=== PATIENT | female | born 1980 | race Caucasian/White ===

== ENCOUNTER → 2020-08-16 12:32 | Outpatient (CLI) | payer OTHER, SELFPAY ==
--- NOTE | 2020-08-16 13:00 | RAD_ITS ---
STUDY: X-RAY - LUMBAR SPINE REASON FOR EXAM: Female, 39 years old. LUMBAR RADICULOPATHY -- upright images TECHNIQUE: 4 view(s) of the lumbar spine were obtained. COMPARISON: None FINDINGS: Normal lumbar lordosis. There is no substantial scoliosis. There is a normal alignment of the vertebrae. No subluxation on the flexion or extension views to suggest instability. Normal vertebral bodies and endplates. Normal disc space heights. The soft tissue structures are unremarkable. RAD/L/S Spine Bending Flex/Ext IMPRESSION: Normal x-ray examination of the lumbar spine. No instability. Electronically Signed: Amadeo Alvarez MD at 17:21 EDT Tel , Service support ,
--- NOTE | 2020-08-16 13:21 | RAD_ITS ---
STUDY: X-RAY - LUMBAR SPINE REASON FOR EXAM: Female, 39 years old. PAIN -- supine images TECHNIQUE: 4 view(s) of the lumbar spine were obtained. COMPARISON: None FINDINGS: Normal lumbar lordosis. There is no substantial scoliosis. There is a normal alignment of the vertebrae. No subluxation on the flexion or extension views to suggest instability. Normal vertebral bodies and endplates. Normal disc space heights. The soft tissue structures are unremarkable. RAD/L/S Spine Bending Flex/Ext IMPRESSION: Normal x-ray examination of the lumbar spine. No instability. Electronically Signed: Amadeo Alvarez MD at 17:20 EDT Tel , Service support ,
--- NOTE | 2020-08-16 13:34 | MRI_ITS ---
STUDY: MRI LUMBAR SPINE WITHOUT CONTRAST REASON FOR EXAM: Female, 39 years old. RADICULOPATHY TECHNIQUE: Standardized fat and water weighted pulse sequences were obtained in the sagittal and axial planes. COMPARISON: X-ray earlier today FINDINGS: T12-L1: Normal endplates. Normal disc height, hydration and morphology. Normal bilateral facet joints. Normal central canal and bilateral lateral recesses. Normal bilateral intervertebral neural foramina. Normal lumbar lordosis. There is no substantial scoliosis. Normal conus medullaris that terminates at the L1/L2. L1-2: Normal endplates. Normal disc height, hydration and morphology. Normal bilateral facet joints. Normal central canal and bilateral lateral recesses. Normal bilateral intervertebral neural foramina. L2-3: Normal endplates. Normal disc height, hydration and morphology. Normal bilateral facet joints. Normal central canal and bilateral lateral recesses. Normal bilateral intervertebral neural foramina. L3-4: Normal endplates. Normal disc height, hydration and morphology. Normal bilateral facet joints. Normal central canal and bilateral lateral recesses. Normal bilateral intervertebral neural foramina. L4-5: Mild bilateral facet hypertrophy and ligament flavum hypertrophy. Moderate broad disc protrusion produces moderate spinal stenosis with moderate right lateral recess stenosis with abutment of the right L5 nerve root and severe left lateral recess stenosis with effacement the left L5 nerve root and mild bilateral neural foraminal stenosis. L5-S1: Normal endplates. Normal disc height, hydration and morphology. Normal bilateral facet joints. Normal central canal and bilateral lateral recesses. Normal bilateral intervertebral neural foramina. Normal visualized sacral ala. Normal visualized paraspinous soft tissue structures. MRI/Spine Lumbar (Routine) IMPRESSION: Focal degenerative disc disease at L4/L5 asymmetric to the left as described above. Electronically Signed: Amadeo Alvarez MD at 16:09 EDT Tel , Service support ,
== END ==
DX: M54.16 Radiculopathy, lumbar region (principal)
CPT/HCPCS: 72120; 72148

== ENCOUNTER 2021-01-27 11:39 | Emergency (ER) | payer OTHER, SELFPAY ==
[2021-01-27 11:40] VITALS: BP 140/99; PULSE 91; RESP 16; TEMP 36.6; O2SAT 100; BMI 33.9
--- NOTE | 2021-01-27 12:09 | ED.VIS.BACK ---
HPI History of Present Illness Chief Complaint: Back Informant: patient Onset/Context/Timing Onset: Days Context: Gradual Onset Timing: Intermittent Quality: Sharp Location: Lumbar and Left Leg Current Severity: Mild Maximum Severity: Mild Worsened by: improves with Movement Relieved by: Remaining Still Associated Symptoms Associated Symptoms: Radiation to Left Leg; Negative for Numbness, Tingling, Fever, Abdominal Pain, Dysuria, Unable to Ambulate, Unable to Transfer, Urinary Retention, Urinary Incontinence, Constipation and Fecal Incontinence Narrative Narrative: 40-year-old female history of L4-5 discectomy in [place] by Dr. Shaw in September. Patient has done very well since that time. She states over the last several days she has had initially intermittent low back pain radiating to her left leg. She denies any numbness or tingling. No bowel or bladder incontinence or retention. No fever or chills. No trauma. Similar to the pain she had before she had a vasectomy it is not as severe and there is no numbness. It is worse with certain positions. Prior similar symptoms: Yes Recent Illness/Hospitalization: No PFSH PFSH Home Medications methylprednisolone [Medrol ([facility])] See Rx Instructions .ROUTE .COMPLEX PRN 8 Days tab MDD 32 mg 01/27/21 [Rx Last Taken Unknown] oxycodone 5 mg PO Q6H PRN 01/27/21 [History Last Taken Unknown] tizanidine 2 mg PO TID PRN 01/27/21 [History Last Taken Unknown] Allergy/AdvReac Type Severity Reaction Status Date / Time No Known Allergies Allergy Verified 01/27/21 11:42 Surgical History History of appendectomy History of back surgery History of Social History Smoking Status: Never smoker ROS ROS ED ROS Narrative Positional back pain. Review of Systems ROS Unobtainable: Denies due to encephalopathy Constitutional Constitutional ED: Denies chills or fever(s) Eyes Eyes: Denies change in vision ENT ENT ED: Denies ear pain or sore throat Cardiovascular Cardiovascular: Denies chest pain Respiratory/Chest Respiratory/Chest: Denies dyspnea or sputum Gastrointestinal Gastrointestinal: Denies abdominal pain, diarrhea, nausea or vomiting Genitourinary Genitourinary ED: Denies dysuria or hematuria Musculoskeletal Musculoskeletal: Reports back pain; Denies arthralgias or myalgias Integumentary Denies abscess or rash Neurologic Neurologic: Denies headache(s) Psychiatric Psychiatric: Denies depression Endocrine Endocrinology: Denies polyuria Hematologic/Lymphatic Hematologic/Lymphatic: Denies easy bruising Allergic/Immunologic Allergic/Immunologic ED: Denies urticaria EXAM Physical Exam Narrative Exam Narrative: Well-appearing 40-year-old female. Vital signs stable afebrile. HEENT neck heart lung abdominal exams unremarkable. Back nontender. Well-healed lower lumbar incision. Minimal tenderness left SI joint right unremarkable. Both upper and lower extremities are neurovascular intact positive straight leg raise test on the left. No cauda equina. No saddle anesthesia. 5/5 motor strength normal sensation. Neurologic exam unremarkable. Const Vital Signs: 01/27/21 11:40 Temperature 97.8 F Temperature Source Temporal Pulse Rate 91 Respiratory Rate 16 Blood Pressure 140/99 H Blood Pressure Mean 112 Pulse Ox 100 Oxygen Delivery Method Room Air Positive well nourished and well developed; Negative for obese, cachectic, contractures or unkempt General Appearance ED: well developed and NAD; Negative for unkempt, cachectic, contractures or pallor Nutritional Appearance: Negative for cachectic or obese HEENT Reports moist mucous membranes Negative for trauma or tenderness Eyes PERRL and EOMs intact bilaterally General Eye ED: Negative for pale conjunctiva or scleral icterus Neck no lymphadenopathy, supple and no JVD General: Negative for tenderness Resp normal respiratory effort and clear to auscultation bilaterally Effort and Inspection: Negative for pain with movement Cardio regular rate, regular rhythm, S1 normal heart sound, S2 normal heart sound and no murmurs GI normal to inspection, nondistended, normoactive bowel sounds, soft to palpation, non-tender, non-distended and no masses Inspection: Negative for abdominal distention Palpation: Negative for tender, guarding or rebound tenderness present Back/Spine normal to inspection and no thoracic nor lumbar tenderness General Back: Negative for CVA tenderness or scar(s) Cervical Spine: Negative for cervical spine tenderness and Negative for paracervical muscle tenderness Lumbar Spine / Lower Back: straight leg raise positive - left Extremity normal to inspection General Extremety ED: Negative for edema or tenderness General Extremity: Negative for edema Neuro oriented x3 and no sensory deficits noted Sensorium / Orientation: alert; Negative for confused, lethargic or stuporous Motor Exam: strength 5/5 throughout Psych mental status grossly normal Appearance: Negative for unkempt Skin no rashes or lesions noted and no wounds General Skin Exam: Negative for jaundice or pallor MDM MDM MDM Narrative Medical decision making narrative: 40-year-old female with recurrent low back pain rating to her left leg. Prior discectomy of L4-5 in September. Basically has positive straight leg raise on the left. No cauda equina. She has normal motor strength and sensation. Discharged home on a Medrol Dosepak she has pain medication already. She already has a call out to her neurosurgeon from [place]. She does not need any emergent imaging at this time. Discharge Plan Triage Chief Complaint: Back ED Provider: Naren Pastor Dx/Rx/DC Orders Clinical Impression: Acute back pain Instructions: ED Back Pain (Acute or Chronic) Prescriptions: New methylprednisolone [Medrol ([facility])] 4 mg tablets,dose pack See Rx Instructions .ROUTE .COMPLEX MDD 32 mg PRN (Reason: back pain) 8 Days RF: 0 No Action tizanidine 2 mg tablet 2 mg PO TID PRN (Reason: Pain) RF: 0 oxycodone 5 mg tablet 5 mg PO Q6H PRN (Reason: Pain) RF: 0 Primary Care Provider: Care Physician,No Primary Referrals: Care Physician,No Primary [Primary Care Provider] - Activity Restrictions/Additional Instructions: Follow-up with your neurosurgeon in [place] soon as possible. Motrin for pain. And your pain medication. Medrol Dosepak to try to decrease inflammation in your back. Disposition Disposition: Home, Self Care
[2021-01-27 12:35] VITALS: PULSE 88; RESP 17; O2SAT 100
== END 2021-01-27 12:36 | disposition home or self-care (01) ==
LOC: ED 12:15
PROVIDERS: Emergency Provider Emergency Medicine
DX: M54.5 Low back pain (principal); Z79.899 Other long term (current) drug therapy
CPT/HCPCS: 99282

== ENCOUNTER 2021-01-28 10:33 | Emergency (ER) | payer OTHER, SELFPAY ==
[2021-01-28 10:36] VITALS: BP 153/91; PULSE 107; RESP 16; TEMP 36.6; O2SAT 97; BMI 33.9
--- NOTE | 2021-01-28 11:15 | ED.RN ---
Pt. reports spasms in LLE since yesterday. Pt. was seen here in [facility] yesterday. Was sent home with steroids and instructed to follow up with surgeon. Pt. states pain is worse and is having difficultly in ambulating and dressing self. Significant other at bedside.
--- NOTE | 2021-01-28 11:50 | MRI_ITS ---
EXAM: MR LUMBAR SPINE WITHOUT AND WITH INTRAVENOUS CONTRAST CLINICAL INDICATION: new Left leg weakness, numbness, Hx L spine sx-September 2020 TECHNIQUE: Multiplanar and multisequence MR images of the lumbar spine without and with intravenous contrast. This report was created using [employer] report Fracture technology. CONTRAST: IV 19ml Dotarem COMPARISON: 08/16/2020 FINDINGS: VERTEBRAE: Normal alignment. No spondylolisthesis. There is preservation of the normal lumbar lordosis. SPINAL CORD: Conus medullaris noted at L1. SOFT TISSUES: Unremarkable. DISCS/SPINAL CANAL/NEURAL FORAMINA: L1-L2: Unremarkable. Normal disc height and morphology. Normal spinal canal, lateral recesses and neuroforamina. L2-L3: Unremarkable. Normal disc height and morphology. Normal spinal canal, lateral recesses and neuroforamina. L3-L4: Unremarkable. Normal disc height and morphology. Normal spinal canal, lateral recesses and neuroforamina. L4-L5: Recurrent disc herniation on the left side of L4-5. Axial T1 C+ FS MR shows well-defined, peripherally enhancing, recurrent disc herniation on the left side of L4-5. Herniated disc material measures 9.2 mm craniocaudal by 5.8 mm AP by 6.2 mm transverse. There is effacing of the anterior left ventral thecal sac. There is compression of the descending left L5 nerve root. There is a prior left laminectomy defect with metallic artifact and enhancing scar tissue. L5-S1: Unremarkable. Normal disc height and morphology. Normal spinal canal, lateral recesses and neuroforamina. MRI/Spine Lumbar W/WO Contrast IMPRESSION: Recurrent extruded disc herniation extending superiorly and inferiorly. It is also narrowing the AP diameter of the spinal canal. It is on the left side of L4-5. Electronically Signed: Kana Quintero MD at 13:33 EDT , Service support ,
--- NOTE | 2021-01-28 11:55 | EDS_ITS ---
HPI History of Present Illness Chief Complaint: Lower Extremity Injury Informant: patient Narrative Narrative: Patient is a 40-year-old female with history of lumbar spine surgery performed by Dr. Shaw on L4/L5 in [place] presenting with worsening pain and now weakness and numbness of her left lower extremity. Patient has had sharp pains from her left leg that been worsening over the past week. She was seen yesterday because of increased pain. She was placed on a Medrol Dosepak. She has been taking tizanidine and oxycodone at home with minimal relief. After she went home she developed numbness in her left leg as well as weakness. She states he is having a hard time walking. She notes anytime she tries to move her leg her entire leg feels like it spasming up and cramping. She describes it as a massive charley horse. She did call her neurosurgeon today but they did not call back so she came to the emergency room. Patient denies any bowel or bladder incontinence. She denies any perineal numbness. No fever or chills. No other complaints at this time. No injury or trauma reported. PFSH PFSH Home Medications methylprednisolone [Medrol ([facility])] See Rx Instructions .ROUTE .COMPLEX PRN 8 Days tab MDD 32 mg 01/27/21 [Rx Last Taken Unknown] oxycodone 5 mg PO Q6H PRN 01/27/21 [History Last Taken Unknown] tizanidine 2 mg PO TID PRN 01/27/21 [History Last Taken Unknown] gabapentin 100 mg PO TID #30 cap 01/28/21 [Rx Last Taken Unknown] Allergy/AdvReac Type Severity Reaction Status Date / Time No Known Allergies Allergy Verified 01/28/21 10:35 Surgical History History of appendectomy History of back surgery History of Social History Smoking Status: Never smoker ROS ROS ED Constitutional Constitutional ED: Denies fever(s) or subjective Eyes Eyes: Denies change in vision ENT ENT ED: Denies sore throat Cardiovascular Cardiovascular: Denies chest pain Respiratory/Chest Respiratory/Chest: Denies cough, dyspnea or sputum Gastrointestinal Gastrointestinal: Denies abdominal pain, diarrhea, nausea or vomiting Genitourinary Genitourinary ED: Denies dysuria or hematuria Musculoskeletal Musculoskeletal: Reports back pain and other Details: Left leg pain and spasms Integumentary Denies rash Neurologic Neurologic: Reports paresthesias LLE and weakness Psychiatric Psychiatric: Denies anxiety or depression EXAM Physical Exam Const Vital Signs: 01/28/21 10:36 01/28/21 13:06 Temperature 98 F Temperature Source Temporal Pulse Rate 107 H 76 Respiratory Rate 16 14 Blood Pressure 153/91 H 119/70 Blood Pressure Mean 111 86 Pulse Ox 97 98 Oxygen Delivery Method Room Air Room Air Positive well nourished and well developed General Appearance ED: well developed HEENT normocephalic and atraumatic Neck full ROM and supple Resp normal respiratory effort and clear to auscultation bilaterally Cardio regular rate, regular rhythm and no murmurs GI non-tender and non-distended Auscultation: normoactive bowel sounds Palpation: soft Back/Spine Lumbar Spine / Lower Back: straight leg raise positive right at 70 degrees (Pain to left leg) Extremity Extremity Narrative: No obvious deformity of the left lower extremity. Sensation intact in all dermatomes but she has subjective paresthesias on the lateral aspect of the thigh and calf as well as diffusely on the foot. Patient has weakness with toe flexion/extension, plantar flexion and dorsiflexion of the foot as well as movement of the leg diffusely. Neuro oriented x3 Neuro Narrative: Unable to elicit Babinski bilaterally Sensorium / Orientation: alert Sensory Exam: sensory level loss detected Location: S1 Motor Exam: strength abnormal Psych mental status grossly normal Skin Rashes: no rashes MDM MDM MDM Narrative Medical decision making narrative: Patient is evaluated for new onset of left- sided paresthesias and weakness of her left lower extremity. It is in a radicular distribution. She appears nontoxic but uncomfortable. She does not have any red flag symptoms for cauda equina syndrome. Given the rapid onset and degree of her radicular symptoms I did obtain an emergent MRI. This shows recurrent extrusion of disc herniation extending superiorly and inferiorly at L4/L5. Patient is given oral Valium and IV morphine in the ER. On reevaluation she does have improvement in her foot movements and symptoms. Case is discussed with spinal surgery on-call, Dr. Olivera, who states that this does not require emergent surgery but does require short outpatient follow-up. She will follow up on Sunday in the office. Patient is comfortable going home. She will be started on gabapentin. She will continue the steroid that she was already prescribed. She did have 1 dose yesterday and I suspect that is the cause of her leukocytosis of 15.0. Patient counseled on return precautions including signs and symptoms of cauda equina syndrome. Patient verbalizes agreement and understand this plan. Patient discharged home in stable and improved condition. Lab Data Attestation: I reviewed the patient's lab results. Labs: Laboratory Results - last 24 hr 01/28/21 01/28/21 01/28/21 12:10 12:10 12:10 WBC 15.0 H RBC 4.63 Hgb 14.7 Hct 42.9 MCV 92.7 MCH 31.7 MCHC 34.3 RDW Std Deviation 39.8 RDW Coeff of Ivis 11.8 Plt Count 311 MPV 9.6 Immature Gran % (Auto) 0.600 Neut % (Auto) 84.4 H Lymph % (Auto) 9.9 L [place] % (Auto) 4.7 Eos % (Auto) 0.3 Baso % (Auto) 0.1 Absolute Neuts (auto) 12.7 H Absolute Lymphs (auto) 1.49 Nucleated RBC % 0 Sodium 137 Potassium 3.6 Chloride 105 Carbon Dioxide 24.0 Anion Gap 8 BUN 12 Creatinine 0.72 Estim Creat Clear Calc 98.20 Est GFR (MDRD) Af Amer 115 Est GFR (MDRD) Non-Af 95 BUN/Creatinine Ratio 16.6 Glucose 98 Calcium 8.9 Serum , Qual NEGATIVE Radiography Diagnostic Testing: Radiology Impression Lumbar Spine MRI 01/28/21 11:50 IMPRESSION: Recurrent extruded disc herniation extending superiorly and inferiorly. It is also narrowing the AP diameter of the spinal canal. It is on the left side of L4-5. Electronically Signed: Kana Quintero MD at 13:33 EDT , Service support , Discharge Plan Triage Chief Complaint: Lower Extremity Injury ED Provider: Catalina Colon Dx/Rx/DC Orders Clinical Impression: Herniated intervertebral disc of lumbar spine, Radiculopathy due to disorder of intervertebral disc of lumbar spine, Paresthesia of left lower extremity Instructions: Understanding Lumbar Radiculopathy, ED Herniated Intervertebral Disk Prescriptions: New gabapentin 100 mg capsule 100 mg PO TID Qty: 30 RF: 0 No Action tizanidine 2 mg tablet 2 mg PO TID PRN (Reason: Pain) RF: 0 oxycodone 5 mg tablet 5 mg PO Q6H PRN (Reason: Pain) RF: 0 methylprednisolone [Medrol ([facility])] 4 mg tablets,dose pack See Rx Instructions .ROUTE .COMPLEX MDD 32 mg PRN (Reason: back pain) 8 Days RF: 0 Primary Care Provider: Care Physician,No Primary Referrals: Michael Olivera DO [STAFF PHYSICIAN] - As soon as possible (Call for appointment today to be seen on Sunday ) Care Physician,No Primary [Primary Care Provider] - Disposition Disposition: Home, Self Care
[2021-01-28] MEDS: diazePAM 2 MG Tablet 4 MG PO (12:10)
[2021-01-28] MEDS: Morphine 4 MG/ML Syringe IV (12:11)
[2021-01-28 12:18] LABS: Absolute Lymphocyte Count 1.49 X10^3/uL (0.83-4.51); Absolute Neutrophil Count 12.7 X10^3/uL (2.0-7.7); Basophil# 0.02 X10^3/uL; Basophil% 0.1 % (0-1); Eosinophil# 0.04 X10^3/uL; Eosinophils% 0.3 % (0-5); Hematocrit 42.9 % (37-47); Hemoglobin 14.7 g/dL (12.0-15.0); Lymphocyte # 1.49 X10^3/ul (0.83-4.51); Lymphocyte % 9.9 % (19-41); Mean Corp Hgb Conc 34.3 g/dL (32-36); Mean Corpuscular Hgb 31.7 pg (27.0-32.0); Mean Corpuscular Volume 92.7 fL (81-99); Mean Platelet Vol. 9.6 fl (6.2-12.0); Monocyte% 4.7 % (0-10); NRBC Flagged by Analyzer 0 % (0-5); Neutrophil # 12.67 X10^3/uL (2.7-7.7); Neutrophil % 84.4 % (47-70); Platelet Count 311 K/mm3 (150-450); RBC Distribution Width CV 11.8 % (11.6-14.6); RBC Distribution Width SD 39.8 fl (35.1-43.9); Red Blood Count 4.63 M/mm3 (4.2-5.4)
[2021-01-28 12:30] LABS: Anion Gap 8 (5-15); BUN 12 mg/dL (7-18); BUN/Creat Ratio 16.6 RATIO (10-20); Calcium,Total 8.9 mg/dL (8.5-10.1); Chloride 105 mmol/L (98-107); Creatinine, Serum 0.72 mg/dL (0.55-1.02); EST Glomerular Filtration Rate 95 mL/min (>60); Est Glom Filt Rate - Afr Amer 115 mL/min (>60); Glucose 98 mg/dL (74-106); Potassium 3.6 mmol/L (3.5-5.1); Sodium Level 137 mmol/L (136-145)
[2021-01-28 12:45] LABS: Internal QC Validated? YES +Cl - CLEAR BKGD; Pregnancy, Serum, hCG Quali. NEGATIVE Negative
[2021-01-28 13:06] VITALS: BP 119/70; PULSE 76; RESP 14; O2SAT 98
== END 2021-01-28 15:06 | disposition home or self-care (01) ==
PROVIDERS: Emergency Provider Emergency Medicine
DX: M51.16 Intervertebral disc disorders with radiculopathy, lumbar region (principal); R20.2 Paresthesia of skin; Z79.899 Other long term (current) drug therapy
CPT/HCPCS: 72158; 80048; 84703; 85025; 96374; 99282; A9575; J7030; A4216